=== PATIENT | male | born 1995 | race Hispanic/Latino ===

== ENCOUNTER → 2024-11-17 | Outpatient (CLI) | payer OTHER ==
--- NOTE | 2024-11-17 15:53 | HMCIMG ---
Lumbar spine 2 views: AP, lateral Clinical Information: OSTEOARTHRITIS Comparison: None Findings: Exam of the lumbosacral spine demonstrates no evidence of fracture, subluxation, or significant degenerative change. There is straightening of the spine consistent with spasm. The disc spaces are intact. The facet joints are preserved without significant degenerative changes Bone mineralization is normal. Impression: Lumbar spasm.
== END | disposition home or self-care (01) ==
LOC: RAH 15:26
PROVIDERS: ATTEND Internal Medicine
DX: M19.90 Unspecified osteoarthritis, unspecified site (principal)
CPT/HCPCS: 72100